=== PATIENT | male | born 1975 | race Caucasian/White ===

== ENCOUNTER 2020-04-03 15:49 | Emergency (ER) | payer OTHER, SELFPAY ==
[~2020-04-03] VITALS: Ht 165.1 cm; Wt 81.6 kg
[2020-04-03 15:53] VITALS: Ht 165.1 cm; Wt 81.6 kg
[2020-04-03 18:22] VITALS: BP 99/64
== END 2020-04-03 18:22 | disposition home or self-care (01) ==
LOC: ED 15:49
DX: U07.1 COVID-19 (principal); J12.89 Other viral pneumonia
CPT/HCPCS: 36600; Q0092; U0003-CS